=== PATIENT | female | born 1965 | race Caucasian/White ===

== ENCOUNTER 2021-03-03 11:18 | Emergency (ER) | payer MEDICAID, SELFPAY ==
--- NOTE | 2021-03-03 11:21 | W.ED.GENAD ---
Discharge Plan Disposition Patient Disposition: HOME Condition: Stable Discharge Details Clinical Impression: Right shoulder strain Primary Care Provider: Raymundo Dutton ED Provider: Kelly Duque Home Meds and New Rx's Prescriptions: New prednisone 20 mg tablet See Rx Instructions .ROUTE .COMPLEX Qty: 12 RF: 0 methocarbamol 500 mg tablet 500 mg PO Q6H PRN (Reason: muscle spasm) Qty: 14 RF: 0 Continued cyclobenzaprine 10 mg Tablet 10 mg PO TID PRNRF: 0 tramadol 50 mg Tablet 50 mg PO TID PRNRF: 0 meloxicam 7.5 mg Tablet 7.5 mg PO BID RF: 0 Remicade 100 mg Recon Soln 400 mg IV Q4W RF: 0 esomeprazole magnesium [Nexium] 20 mg Capsule,Delayed Release(Dr/Ec) 20 mg PO DAILY RF: 0 escitalopram oxalate [Lexapro] 20 mg Tablet 20 mg PO DAILY RF: 0 pregabalin [Lyrica] 75 mg Capsule 75 mg PO TID RF: 0 Discharge Instructions Instructions: Shoulder Sprain (ED) Additional Instructions: Alternate ice and heat to the affected area(s) several times daily for 20 minutes at a time. Continue all your regular medications as directed. Prescriptions for the steroid prednisone and muscle relaxer methocarbamol have been sent electronically to your pharmacy. Follow-up with your primary care doctor in 1 week for reevaluation and for consideration for physical therapy or referral to orthopedics for reevaluation and consideration for cortisone injection or additional work-up if symptoms do not improve or worsen. Return to the emergency department with any worsening or new concerning symptoms. Discharge Data Discharge Physician: Kelly Duque Medical Decision Making 55-year-old right hand dominant female with a history of lung cancer and ankylosing spondylitis presents with right shoulder and upper arm pain since grabbing onto a railing to prevent a fall 1 week ago. Denies any direct blunt injury to her shoulder or upper arm. Patient appears slightly uncomfortable but nontoxic. She has reproducible pain in her right shoulder and upper arm with palpation and range of motion. No deformity. Neurovascular intact. No evidence of trauma or cellulitis. Suspect this is most likely shoulder strain versus sprain. Also consider rotator cuff injury but no obvious deficits. Patient was offered an x-ray but declined. Advised to continue her tramadol, Remicade and meloxicam as needed. Will add muscle relaxers and steroids. Advised on the importance of alternating ice and heat. Advised to follow-up with her PCP for reevaluation and consideration for physical therapy, cortisone injection or MRI of symptoms do not improve or worsen. Medical Records Medical records reviewed: Yes I reviewed the patient's medical records. HPI General Mode of arrival: ambulatory. Date/Time Provider Initiated Documentation: 03/03/21 11:21. Limitations to Documentation: no limitations. Information obtained by: patient. HPI Narrative: Patient is a 55-year-old female with a history of lung cancer and ankylosing spondylitis who presents with right shoulder and upper arm pain after a fall 1 week ago in which she slipped on 2 steps and grabbed a railing to prevent her fall and has had right shoulder and upper arm pain since then. She states she hit her elbow but did not directly hit her shoulder or upper arm. She states she is right-handed and her pain is worse with movement of her right upper extremity. She states she takes tramadol twice daily as needed for her joint pain associated with her ankylosing spondylitis and states it has been helping with her pain in her shoulder. She did not take tramadol yet this morning. She states she is on Remicade and cyclobenzaprine. She denies any head injury, chest pain, difficulty breathing, neck pain, back pain, abdominal pain or other extremity injury or pain. Related Data Home Medications Medication Instructions Recorded Confirmed Remicade 400 mg IV Q4W 03/03/21 03/03/21 cyclobenzaprine 10 mg PO TID PRN 03/03/21 03/03/21 escitalopram oxalate [Lexapro] 20 mg PO DAILY 03/03/21 03/03/21 esomeprazole magnesium [Nexium] 20 mg PO DAILY 03/03/21 03/03/21 meloxicam 7.5 mg PO BID 03/03/21 03/03/21 methocarbamol 500 mg PO Q6H PRN #14 tab 03/03/21 prednisone See Rx Instructions .ROUTE 03/03/21 .COMPLEX #12 tab pregabalin [Lyrica] 75 mg PO TID 03/03/21 03/03/21 tramadol 50 mg PO TID PRN 03/03/21 03/03/21 Previous Rx's Medication Instructions Recorded methocarbamol 500 mg PO Q6H PRN #14 tab 03/03/21 prednisone See Rx Instructions .ROUTE 03/03/21 .COMPLEX #12 tab Allergies Allergy/AdvReac Type Severity Reaction Status Date / Time adalimumab [From Humira] AdvReac Other (See Unverified 03/03/21 11:31 Comment) aspirin AdvReac Nausea Unverified 03/03/21 11:31 secukinumab [From Cosentyx] AdvReac Other (See Unverified 03/03/21 11:31 Comment) Review of Systems All systems reviewed & are unremarkable except as noted in HPI and below Constitutional Constitutional: Reports as per HPI, Denies chills and Denies fever(s) Eyes Eyes: Denies blurry vision ENT Ears, Nose, Mouth, and Throat: Denies dizziness, Denies sore throat and Denies throat swelling Cardiovascular Cardiovascular: Denies chest pain and Denies dyspnea Respiratory Respiratory: Denies cough and Denies dyspnea Gastrointestinal Gastrointestinal: Denies abdominal pain, Denies diarrhea and Denies vomiting Genitourinary Genitourinary: Denies hematuria and Denies dysuria Musculoskeletal Musculoskeletal: Denies back pain and Denies numbness Comments: R shoulder and upper arm pain Integumentary/Breasts Skin/Breast: Denies lesions and Denies rash Neurologic Neurologic: Denies dizziness, Denies localized weakness and Denies numbness Allergic/Immunologic Allergic/Immunologic: Denies throat swelling [facility] Medical History (Updated 03/03/21 @ 12:44 by Kelly Duque DO) Ankylosing spondylitis Lung cancer Surgical History (Updated 03/03/21 @ 12:15 by Kelly Duque DO) History of hysterectomy Social History Smoking/Tobacco Use Status: Current every day Tobacco Type: cigarettes Smoking risk assessment performed?: Yes Alcohol Intake: current Alcohol Intake frequency: holidays/special occasions only Drug use: Never Substance use type: does not use Do you feel safe at home: Yes Do you feel safe in your relationship?: Yes Exam Const General: cooperative and no acute distress HENMT Head: normal to inspection Face and sinus: normal facial exam Eyes General: appearance normal, both eyes and all related structures EOM: EOM intact bilaterally Neck Neck: normal visual inspection and No submandibular swelling Lymphatic: no lymphadenopathy noted Chest Chest: normal inspection of the chest and no tenderness Resp Effort & Inspection: normal respiratory effort and able to speak in complete sentences Auscultation: clear to auscultation bilaterally Cardio Rate: regular rate Skin General skin exam: no rashes or lesions noted Neuro General: patient alert, patient awake and patient oriented x3 Cognition: normal cognition Speech: speech normal Motor: muscle tone normal throughout Sensory Exam: no sensory deficits noted Extrem General: normal to inspection, capillary refill normal, no calf tenderness bilaterally and no edema Shoulder/upper arm images: 1. Tenderness to palpation to right anterior, lateral shoulder and right upper arm. Pain reproducible in this location with flexion, abduction and external rotation against resistance. Other: R radial and ulnar pulses intact. No tenderness to palpation to right elbow, forearm, hand and wrist. Psych Appearance: grossly normal Mental Status: mental status grossly normal Speech and Movement: speech and movement normal Affect: normal affect
[2021-03-03 11:25] VITALS: BP 157/96; PULSE 91; RESP 18; TEMP 36.2; O2SAT 98
[2021-03-03] MEDS: predniSONE 20 MG TAB 60 MG PO (12:06)
[2021-03-03] MEDS: diazePAM 5 MG TAB PO (12:06)
== END 2021-03-03 13:14 | disposition home or self-care (01) ==
PROVIDERS: Emergency Provider Physician Assistant; PCP Family Medicine
DX: S46.811A Strain of other muscles, fascia and tendons at shoulder and upper arm level, right arm, initial encounter (principal); X50.1XXA Overexertion from prolonged static or awkward postures, initial encounter; W01.0XXA Fall on same level from slipping, tripping and stumbling without subsequent striking against object, initial encounter
CPT/HCPCS: 99283; J7512

== ENCOUNTER 2022-05-21 14:08 | Emergency (ER) | payer MEDICAID, SELFPAY ==
[2022-05-21 14:13] VITALS: BP 128/71; PULSE 119; RESP 20; TEMP 36.6; O2SAT 98
--- NOTE | 2022-05-21 14:15 | DI.RAD_ITS ---
Exam(s) XR CHEST 2V PA LATERAL EXAM: XR CHEST 2V PA LATERAL CLINICAL HISTORY: Cough, Hx lung Ca, R/O Pneumonia TECHNIQUE: 2D digital imaging was performed of the chest. Two images were obtained. PA and lateral views were obtained. COMPARISON: No exams were available for comparison FINDINGS: MEDIASTINUM: Normal. HEART: Normal. PULMONARY VASCULATURE: Normal. LUNGS: There is opacification of the right middle lobe. This may represent atelectasis or pneumonia. There irregular margins and increased density in the right hilum. The possibility of a central mas s should be considered. This in conjunction with the findings in the right middle lobe suggest an ob structing central lesion. The lungs are otherwise clear. PLEURAL SPACE: No pleural effusion or pneumothorax. BONE:Within normal limits for the patient's age. OTHER FINDINGS:The tip of the indwelling catheter is in good position near the junction of the superi or vena cava and right atrium. There is a hiatal hernia present. IMPRESSION: 1. Irregular soft tissue suggested in the right hilum. Volume loss and opacity in the right middle l obe. A central right hilar mass is suspected. Correlation with outside films or CT scan is recommen ded. 2. While the right middle lobe opacity may reflect simple atelectasis, the possibility of underlying right middle lobe pneumonia cannot be excluded. DATA REPOSITORY: RADIATION DOSE DELIVERED:
--- NOTE | 2022-05-21 14:27 | ED.GENADUL_ITS ---
Discharge Plan Disposition Patient Disposition: Home Condition: Stable Discharge Details Clinical Impression: URI (upper respiratory infection) Primary Care Provider: Miller Ortiz ED Provider: Shakira Mcgill Home Meds and New Rx's Prescriptions: New doxycycline hyclate 100 mg tablet 100 mg PO BID 10 Days Qty: 20 0RF Rx Instructions: Take 1 tablet twice daily x10 days benzonatate 100 mg capsule 100 mg PO BID-TID PRN (Reason: cough) 7 Days Qty: 14 0RF Rx Instructions: Take 1 capsule 2-3 times a day as needed for cough Continued cyclobenzaprine 10 mg Tablet 10 mg PO TID PRN tramadol 50 mg Tablet 50 mg PO TID PRN meloxicam 7.5 mg Tablet 7.5 mg PO BID Remicade 100 mg Recon Soln 400 mg IV Q4W esomeprazole magnesium [Nexium] 20 mg Capsule,Delayed Release(Dr/Ec) 20 mg PO DAILY escitalopram oxalate [Lexapro] 20 mg Tablet 20 mg PO DAILY pregabalin [Lyrica] 75 mg Capsule 75 mg PO TID prednisone 20 mg tablet See Rx Instructions .ROUTE .COMPLEX Qty: 12 0RF Rx Instructions: Take 3 tabs daily for 2 days, then 2 tabs daily for 2 days, then 1 tab daily for 2 days methocarbamol 500 mg tablet 500 mg PO Q6H PRN (Reason: muscle spasm) Qty: 14 0RF Discharge Instructions Instructions: Upper Respiratory Infection (ED) Additional Instructions: Continue using the albuterol inhaler 1 to 2 puffs every 4-6 hours as needed. The x-ray today shows a central right hilar mass suspected however we do not have any old images to compare this to and they do recommend repeat x-rays or CT scan. Please discuss this with your primary care provider. Please take the antibiotics and cough medicine as prescribed. You were given the first dose of doxycycline here in the department. Follow up with primary care provider in 3-5 days. Return to ED sooner if any worsening or concerns. Increase oral fluids. Please take Tylenol or Ibuprofen with food every 4-6 hours as needed for pain and swelling. Referrals: Miller Ortiz [Primary Care Provider] - 3 days Medical Decision Making See x-ray results below questionable right hilar mass suspected no old images to compare. I will discuss this with the patient and encouraged her to follow-up with PCP. However due to patient's symptoms we will go ahead and place patient on doxycycline for possible pneumonia. This text was generated using [employer] system, please disregard any oddities of phrase or misspellings. Imaging Data Radiologic Study: Imaging: X-Ray Radiologist's impression: CLINICAL HISTORY: Cough, Hx lung Ca, R/O Pneumonia TECHNIQUE: 2D digital imaging was performed of the chest. Two images were obtained. PA and lateral views were obtained. COMPARISON: No exams were available for comparison FINDINGS: MEDIASTINUM: Normal. HEART: Normal. PULMONARY VASCULATURE: Normal. LUNGS: There is opacification of the right middle lobe. This may represent atelectasis or pneumonia. There irregular margins and increased density in the right hilum. The possibility of a central mass should be considered. This in conjunction with the findings in the right middle lobe suggest an obstructing central lesion. The lungs are otherwise clear. PLEURAL SPACE: No pleural effusion or pneumothorax. BONE:Within normal limits for the patient's age. OTHER FINDINGS:The tip of the indwelling catheter is in good position near the junction of the superior vena cava and right atrium. There is a hiatal hernia present. IMPRESSION: 1. Irregular soft tissue suggested in the right hilum. Volume loss and opacity in the right middle lobe. A central right hilar mass is suspected. Correlation with outside films or CT scan is recommended. 2. While the right middle lobe opacity may reflect simple atelectasis, the possibility of underlying right middle lobe pneumonia cannot be excluded. HPI General Mode of arrival: ambulatory . Date/Time Provider Initiated Documentation: 05/21/22 14:12 . Limitations to Documentation: no limitations . Information obtained by: patient, family, RN notes reviewed and old records reviewed . HPI Narrative: 57-year-old female presents to the ER with chief complaint of productive cough, she reports that she has had flu in April. She reports productive cough with green-yellow sputum initially had fever and chills but none recently. Her reports that she has been clammy and she does have some nausea. She does have a history of lung cancer which is in remission and ankylosing spondylitis which she reports that she has been on steroids for the last month. No significant other associated symptoms or complaints denies any chest pain abdominal pain. She has been using an albuterol inhaler with little to no relief at home. Upon initial presentation and exam she does have rhonchi bilaterally. Related Data Home Medications Medication Instructions Recorded Confirmed cyclobenzaprine 10 mg tablet 10 mg PO TID PRN 03/03/21 03/03/21 escitalopram oxalate 20 mg tablet 20 mg PO DAILY 03/03/21 03/03/21 (Lexapro) esomeprazole magnesium 20 mg 20 mg PO DAILY 03/03/21 03/03/21 capsule,delayed release (Nexium) infliximab 100 mg intravenous 400 mg IV Q4W 03/03/21 03/03/21 solution (Remicade) meloxicam 7.5 mg tablet 7.5 mg PO BID 03/03/21 03/03/21 methocarbamol 500 mg tablet 500 mg PO Q6H PRN muscle spasm #14 03/03/21 tabs prednisone 20 mg tablet See Rx Instructions .Route 03/03/21 .COMPLEX #12 tabs pregabalin 75 mg capsule (Lyrica) 75 mg PO TID 03/03/21 03/03/21 tramadol 50 mg tablet 50 mg PO TID PRN 03/03/21 03/03/21 benzonatate 100 mg capsule 100 mg PO BID-TID PRN cough 7 days 05/21/22 #14 caps doxycycline hyclate 100 mg tablet 100 mg PO BID pneumonia 10 days 05/21/22 #20 tabs Previous Rx's Medication Instructions Recorded methocarbamol 500 mg tablet 500 mg PO Q6H PRN muscle spasm #14 03/03/21 tabs prednisone 20 mg tablet See Rx Instructions .Route 03/03/21 .COMPLEX #12 tabs benzonatate 100 mg capsule 100 mg PO BID-TID PRN cough 7 days 05/21/22 #14 caps doxycycline hyclate 100 mg tablet 100 mg PO BID pneumonia 10 days 05/21/22 #20 tabs Allergies Allergy/AdvReac Type Severity Reaction Status Date / Time adalimumab [From Humira] AdvReac Other (See Unverified 03/03/21 11:31 Comment) aspirin AdvReac Nausea Unverified 03/03/21 11:31 secukinumab [From Cosentyx] AdvReac Other (See Unverified 03/03/21 11:31 Comment) General Stated Complaint: RespSymp ANIL: 3 Review of Systems All systems reviewed & are unremarkable except as noted in HPI and below Constitutional Constitutional: Reports as per HPI, Reports fatigue, Denies fever(s) and Denies headache(s) ENT Ears, Nose, Mouth, and Throat: Denies headache(s) Cardiovascular Cardiovascular: Denies chest pain, Denies chest pain at rest and Denies rapid heart rate Respiratory Respiratory: Reports as per HPI, Reports change in phlegm color, Reports cough and Reports excessive phlegm production Neurologic Neurologic: Denies headache(s) Endocrine Endocrine: Reports fatigue PFSH All Active Problems (Updated 05/21/22 @ 15:45 by Shakira Mcgill NP) Right shoulder strain (Acute) URI (upper respiratory infection) (Acute) Medical History Ankylosing spondylitis Lung cancer Surgical History History of hysterectomy Social History Smoking/Tobacco Use Status: Current every day Tobacco Type: cigarettes Smoking risk assessment performed?: Yes Alcohol Intake: current Alcohol Intake frequency: holidays/special occasions only Drug use: Never Substance use type: does not use Do you feel safe at home: Yes Do you feel safe in your relationship?: Yes Exam Narrative Exam Narrative: Constitutional: Alert and oriented x3. Appears stated age. Normal body habitus. Head: Normocephalic, no trauma. Eyes: Pupils PERRL, Red reflex noted, EOM's intact. Eyelids symmetrical without lesions, discharge, or swelling. ENT: Bilateral TM's WNL, External ear normal to inspection, no mastoid TTP, swelling, or erythema, Nasal turbinates WNL, no nasal discharge. Normal dentition, Posterior pharynx WNL, no exudate. Chest: RRR, Normal S1, S2, distal pulses intact. Resp: Lungs return expiratory rhonchi bilaterally. Abdomen: Soft, non-distended, Normoactive bowel sounds all 4 quads. Musculoskeletal: Normal gait, 5/5 strength to all four extremities. Skin: No suspicious rashes or lesions. Capillary refill less than 2 sec. Neurologic: Cranial nerves II-XII intact. Alert and oriented x 3. Motor: No deficits noted. Hematologic/Lymphatic: No ecchymosis, no lymphadenopathy. Course Vital Signs Vital signs: Vital Signs Temperature 36.6 C 05/21/22 14:13 Pulse 119 H 05/21/22 14:13 Respiratory Rate 20 05/21/22 14:13 Blood Pressure 128/71 05/21/22 14:13 Pulse Oximetry 98 05/21/22 14:13 Temperature 36.6 C 05/21/22 14:13 Temperature Source Temporal Artery Scan 05/21/22 14:13 Pulse 119 H 05/21/22 14:13 Respiratory Rate 20 05/21/22 14:13 Blood Pressure 128/71 05/21/22 14:13 Blood Pressure Position Sitting 05/21/22 14:13 Pulse Oximetry 98 05/21/22 14:13 Oxygen Delivery Method Room Air 05/21/22 14:13 Oxygen Flow Rate 0 05/21/22 14:13 Pain Level 8 05/21/22 14:13
[2022-05-21] MEDS: Doxycycline Hyclate 100 MG CAP PO (16:10)
== END 2022-05-21 16:15 | disposition home or self-care (01) ==
PROVIDERS: Emergency Provider Registered Nurse Emergency; PCP Nurse Practitioner Adult Health
DX: J06.9 Acute upper respiratory infection, unspecified (principal); Z85.118 Personal history of other malignant neoplasm of bronchus and lung
CPT/HCPCS: 99283; 71046; 99284

== ENCOUNTER 2022-07-05 01:08 | Outpatient (CLI) | payer MEDICAID, SELFPAY ==
[2022-07-05] MEDS: Barium Sulfate 2% W/V-Berry Smoothie 450 ML BTL PO ×2 (10:29→10:30)
--- NOTE | 2022-07-05 13:00 | DI.CT_ITS ---
Exam(s) CT CHEST/ABD/PEL W EXAM: CT CHEST/ABD/PEL W CLINICAL HISTORY: [place] CA RT LUNG,C34.91. TECHNIQUE: Imaging Protocol: Axial computed tomography images with coronal and sagittal reformatted images were created and reviewed CONTRAST MATERIAL: Intravenous: Omnipaque 350 Contrast volume:100 ml Oral: yes / COMPARISON: CT CT CHEST W CONTRAST from 05/31/[address] CHEST W CONTRAST from 08/27/2021 FINDINGS: CHEST: Tracheobronchial tree: Patent where visualized. Pulmonary parenchyma: Stable linear area of scarring in the right upper lobe to the right superior hi lum. Tiny stable nodules at the right lung apex. Stable nodule right middle lobe. Stable nodule la teral inferior left upper lobe. No new pulmonary nodules are seen. Pleura: No effusion or pneumothorax. Lymph nodes: Within normal limits. Aorta: Thoracic portion non-dilated. Heart: Normal size. Minimal coronary artery calcifications. Bones: Bilateral old rib fractures. No lytic or blastic lesions.No compression fractures. Large hiatal hernia. Oral contrast in the esophagus could indicate reflux. ABDOMEN: Liver: Normal density. Stable full appearance of nodule in the posterior right lobe of the left femur with peripheral puddling which may represent a hemangioma. Additional tiny enhancing density is see n at the periphery, also unchanged. Gallbladder and biliary tract: No radiodense calculus or dilation. Pancreas: Normal density, no abnormal calcifications or inflammatory process. Spleen: Normal. Kidneys: Normal size, contour and axis. No radiodense stones or obstructive uropathy. No suspicious m asses seen. Adrenal glands: No masses seen. Aorta: Abdominal portion non-dilated. Lymph nodes: Within normal limits. Soft tissues: Unremarkable. PELVIS: Bladder: Symmetric distention, no gross wall thickening. Bowel: No obstruction or bowel wall thickening. Mild sigmoid diverticulosis. Peritoneal cavity: No ascites, collection or mesenteric inflammatory response. Bones: Unremarkable for age.. Reproductive organs: Status post hysterectomy. IMPRESSION: Stable appearance of the chest right upper lobe scarring. Stable bilateral pulmonary nodules. No ne w findings. No evidence of metastatic disease in the abdomen or pelvis. RADIATION DOSE DELIVERED: 1,918.62mGy.cm Total DLP DATA REPOSITORY: All CT scans at this facility are submitted to the National Radiology Data Registry (NRDR) Dose Index Registry (DIR) with the [employer] (A[employer]). RADIATION OPTIMIZATION: All CT scans at this facility use at least one of these dose optimization te chniques: automated exposure control; mA and/or kV adjustment per patient size (includes targeted exa ms where dose is matched to clinical indication); or iterative reconstruction.
[2022-07-05] MEDS: Omnipaque 350 MG/ML 500 ML BTL-Imaging package IJ (13:01)
[2022-07-05] MEDS: Normal Saline - Diluent 50 ML VIAL IJ (13:05)
== END 2022-07-05 01:28 ==
LOC: DI 01:08
PROVIDERS: PCP Nurse Practitioner Adult Health; Visit Provider Nurse Practitioner
DX: C34.91 Malignant neoplasm of unspecified part of right bronchus or lung (principal)
CPT/HCPCS: 74177; 71260

== ENCOUNTER 2022-07-05 01:22 | Outpatient (RCR) | payer MEDICAID, SELFPAY ==
[2022-06-12] VITALS (7 sets, daily range): BP systolic 113–150; BP diastolic 84–97; PULSE 90–99; RESP 17–18; TEMP 36.5–36.7; O2SAT 97–99
[2022-06-12] MEDS: Normal Saline Flush 10 ML SYR IVP (11:00)
[2022-06-12 11:14] LABS: HCT 38.4 % (36.0-46.0); HGB 12.7 g/dL (11.2-15.7); MCH 31.2 pg (27.0-33.0); MCHC 33.1 % (32.0-36.0); MCV 94 fL (80-95); Platelet Count 272 10^3/uL (130-400); RBC 4.07 10^6/uL (3.93-5.22); RDW 13.2 % (11.7-14.6); RDW-SD 45.4 fL; WBC 7.43 10^3/uL (4.4-10.8)
[2022-06-12] MEDS: Heparin 500 UNITS/5 ML SYRINGE IV (11:26)
[2022-06-12 11:32] LABS: ALT 14 U/L (14-59); AST 14 U/L (15-37); Albumin 3.6 g/dL (3.4-5.0); Alkaline Phosphatase 111 U/L (46-116); Anion Gap 10.3 mmol/L (3-11); BUN 12 mg/dL (7-18); Bilirubin, Total 0.3 mg/dL (0.2-1.0); CO2 23.7 mmol/L (21.0-32.0); CREATININE 0.9 mg/dL (0.55-1.02); Chloride 105 mmol/L (98-107); Glucose 113 mg/dL (74-106); Potassium 4.1 mmol/L (3.5-5.1); Sodium 139 mmol/L (136-145); Total Protein 7.7 g/dL (6.4-8.2)
[2022-06-28] VITALS (8 sets, daily range): BP systolic 117–133; BP diastolic 84–97; PULSE 87–101; RESP 17–20; TEMP 36.4–36.6; O2SAT 95–98
[2022-06-28] MEDS: Heparin 500 UNITS/5 ML SYRINGE IV (11:48)
[2022-06-28] MEDS: Normal Saline Flush 10 ML SYR IVP (11:48)
[2022-07-05] MEDS: Heparin 500 UNITS/5 ML SYRINGE IV (10:26)
[2022-07-05] MEDS: Normal Saline Flush 10 ML SYR IVP (10:27)
== END 2022-07-09 23:59 | disposition home or self-care (01) ==
LOC: INF 01:22
PROVIDERS: PCP Nurse Practitioner Adult Health; Referring Provider Internal Medicine Rheumatology; Visit Provider Nurse Practitioner Family
DX: M45.9 Ankylosing spondylitis of unspecified sites in spine (principal); Z45.2 Encounter for adjustment and management of vascular access device
CPT/HCPCS: 36591; 80053; 85027; 96365; 96366; 96413; 96415; 96523

== ENCOUNTER 2022-08-14 02:45 | Outpatient (RCR) | payer MEDICAID, SELFPAY ==
[2022-08-14 11:30] VITALS: BP 131/87; PULSE 90; RESP 16; TEMP 36.9; O2SAT 97
[2022-08-14 11:31] LABS: HGB 13.3 g/dL (11.2-15.7); MCH 31.7 pg (27.0-33.0); MCHC 34.1 % (32.0-36.0); MCV 93 fL (80-95); MPV 9.7 fL (8.0-11.0); Platelet Count 312 10^3/uL (130-400); RBC 4.19 10^6/uL (3.93-5.22); RDW 12.2 % (11.7-14.6); RDW-SD 41.4 fL; WBC 5.92 10^3/uL (4.4-10.8)
[2022-08-14 11:47] LABS: ALT 25 U/L (14-59); AST 16 U/L (15-37); Albumin 3.9 g/dL (3.4-5.0); Alkaline Phosphatase 97 U/L (46-116); Anion Gap 7.8 mmol/L (3-11); BUN 11 mg/dL (7-18); Bilirubin, Total 0.2 mg/dL (0.2-1.0); CO2 26.2 mmol/L (21.0-32.0); Calcium 8.9 mg/dL (8.5-10.1); Chloride 102 mmol/L (98-107); Estimated GFR 66.53 (mL/min/1.73m2); Glucose 98 mg/dL (74-106); Potassium 4.5 mmol/L (3.5-5.1); Sodium 136 mmol/L (136-145); Total Protein 7.7 g/dL (6.4-8.2)
[2022-08-14] MEDS: Normal Saline Flush 10 ML SYR IVP (11:52)
[2022-08-14] MEDS: Heparin 500 UNITS/5 ML SYRINGE IVP (11:54)
[2022-08-14 12:05] VITALS: BP 109/75; PULSE 86; RESP 16; TEMP 37; O2SAT 97
[2022-08-14 12:20] VITALS: BP 124/76; PULSE 86; RESP 16; TEMP 36.9; O2SAT 97
[2022-08-14 12:40] VITALS: BP 128/84; PULSE 81; RESP 16; TEMP 36.8; O2SAT 97
[2022-08-14 12:55] VITALS: BP 122/68; PULSE 89; RESP 17; TEMP 36.9; O2SAT 97
[2022-08-14 13:35] VITALS: BP 127/85; PULSE 85; RESP 16; TEMP 36.9; O2SAT 97
== END 2022-09-08 23:59 | disposition home or self-care (01) ==
LOC: INF 02:45
PROVIDERS: PCP Nurse Practitioner Adult Health; Visit Provider Nurse Practitioner Family
DX: M45.9 Ankylosing spondylitis of unspecified sites in spine (principal)
CPT/HCPCS: 36591; 80053; 85027; 96365; 96366; 96413; 96415

== ENCOUNTER 2022-10-09 03:21 | Outpatient (RCR) | payer MEDICAID, SELFPAY ==
[2022-09-09 00:21] VITALS: BP 127/85; PULSE 85; RESP 16; TEMP 36.9
[2022-09-12 11:10] VITALS: BP 125/85; PULSE 86; RESP 17; TEMP 36.7; O2SAT 97
[2022-09-12] MEDS: Heparin 500 UNITS/5 ML SYRINGE IV (11:48)
[2022-09-12] MEDS: Normal Saline Flush 10 ML SYR IVP (11:48)
[2022-09-12 12:07] VITALS: BP 120/78; PULSE 86; RESP 16; TEMP 36.7; O2SAT 96
[2022-09-12 12:24] VITALS: BP 128/84; PULSE 86; RESP 16; TEMP 36.7; O2SAT 98
[2022-09-12 12:40] VITALS: BP 134/88; PULSE 89; RESP 17; TEMP 36.8; O2SAT 96
[2022-09-12 12:50] VITALS: BP 129/87; PULSE 84; RESP 17; TEMP 36.7; O2SAT 96
[2022-09-12 13:25] VITALS: BP 118/83; PULSE 84; RESP 16; TEMP 36.6; O2SAT 96
[2022-10-09] VITALS (7 sets, daily range): BP systolic 115–148; BP diastolic 79–85; PULSE 72–89; RESP 16; TEMP 36.5–36.8; O2SAT 96–100
[2022-10-09 11:39] LABS: HGB 13.3 g/dL (11.2-15.7); MCH 31.8 pg (27.0-33.0); MCHC 34.1 % (32.0-36.0); MCV 93 fL (80-95); MPV 10.1 fL (8.0-11.0); Platelet Count 271 10^3/uL (130-400); RBC 4.18 10^6/uL (3.93-5.22); RDW 12.4 % (11.7-14.6); RDW-SD 42.7 fL; WBC 8.72 10^3/uL (4.4-10.8)
[2022-10-09] MEDS: Heparin 500 UNITS/5 ML SYRINGE IV (11:56)
[2022-10-09] MEDS: Normal Saline Flush 10 ML SYR IVP (11:56)
[2022-10-09 12:01] LABS: ALT 18 U/L (14-59); AST 13 U/L (15-37); Albumin 3.8 g/dL (3.4-5.0); Alkaline Phosphatase 92 U/L (46-116); Anion Gap 8.5 mmol/L (3-11); BUN 19 mg/dL (7-18); Bilirubin, Total 0.4 mg/dL (0.2-1.0); CO2 26.5 mmol/L (21.0-32.0); CREATININE 1.1 mg/dL (0.55-1.02); Calcium 8.7 mg/dL (8.5-10.1); Chloride 105 mmol/L (98-107); Estimated GFR 59.34 (mL/min/1.73m2); Glucose 102 mg/dL (74-106); Potassium 4.2 mmol/L (3.5-5.1); Sodium 140 mmol/L (136-145); Total Protein 7.5 g/dL (6.4-8.2)
== END 2022-10-09 23:59 | disposition home or self-care (01) ==
LOC: INF 03:21
PROVIDERS: PCP Nurse Practitioner Adult Health; Visit Provider Nurse Practitioner Family
DX: C34.91 Malignant neoplasm of unspecified part of right bronchus or lung (principal); M45.7 Ankylosing spondylitis of lumbosacral region
CPT/HCPCS: 36591; 80053; 85027; 96365; 96366; 96523

== ENCOUNTER 2022-12-09 01:54 | Outpatient (RCR) | payer MEDICAID, SELFPAY ==
[2022-11-09 00:15] VITALS: BP 148/84; PULSE 81; RESP 16; TEMP 36.7
[2022-11-15 11:16] VITALS: BP 131/90; PULSE 91; RESP 17; TEMP 37.2; O2SAT 96
[2022-11-15] MEDS: Normal Saline Flush 10 ML SYR IVP (11:38)
[2022-11-15 11:59] VITALS: BP 123/84; PULSE 94; RESP 17; TEMP 37.2; O2SAT 96
[2022-11-15 12:15] VITALS: BP 127/84; PULSE 84; RESP 17; TEMP 37.1; O2SAT 96
[2022-11-15 12:26] LABS: CREATININE 1.1 mg/dL (0.55-1.02); Estimated GFR 59.34 (mL/min/1.73m2)
[2022-11-15 12:30] VITALS: BP 139/91; PULSE 83; RESP 17; TEMP 36.4; O2SAT 96
[2022-11-15 12:45] VITALS: BP 137/88; PULSE 85; RESP 18; TEMP 37.1; O2SAT 98
[2022-11-15 13:15] VITALS: BP 157/94; PULSE 97; RESP 18; TEMP 37; O2SAT 94
== END 2022-12-09 23:59 | disposition home or self-care (01) ==
LOC: INF 01:54
PROVIDERS: PCP Nurse Practitioner Adult Health; Visit Provider Nurse Practitioner Family
DX: C34.91 Malignant neoplasm of unspecified part of right bronchus or lung (principal); Z45.2 Encounter for adjustment and management of vascular access device
CPT/HCPCS: 36591; 96365; 96366; 96413; 96415; 82565

== ENCOUNTER 2023-02-27 11:00 | Outpatient (RCR) | payer MEDICAID, SELFPAY ==
[2023-02-27 11:05] VITALS: BP 124/83; PULSE 86; RESP 17; TEMP 37.2; O2SAT 99
[2023-02-27] MEDS: Normal Saline Flush 10 ML SYR IVP (11:43)
[2023-02-27 12:00] VITALS: BP 116/81; PULSE 84; RESP 17; TEMP 37.1; O2SAT 97
[2023-02-27 12:15] VITALS: BP 124/86; PULSE 84; RESP 17; TEMP 36.9; O2SAT 98
[2023-02-27 12:30] VITALS: BP 125/84; PULSE 85; RESP 17; TEMP 36.8; O2SAT 96
[2023-02-27 12:45] VITALS: BP 123/84; PULSE 85; RESP 16; TEMP 36.7; O2SAT 98
[2023-02-27 13:15] VITALS: BP 127/86; PULSE 85; RESP 16; TEMP 36.9; O2SAT 99
[2023-02-27] MEDS: Heparin 500 UNITS/5 ML SYRINGE (14:05)
== END 2023-03-11 23:59 | disposition home or self-care (01) ==
LOC: INF 11:00
PROVIDERS: PCP Nurse Practitioner Adult Health; Visit Provider Family Medicine
DX: M45.9 Ankylosing spondylitis of unspecified sites in spine (principal)
CPT/HCPCS: 96365; 96366; 96413

== ENCOUNTER 2023-03-27 04:22 | Outpatient (RCR) | payer MEDICAID, SELFPAY ==
[2023-03-12 00:12] VITALS: BP 127/86; PULSE 85; RESP 16; TEMP 36.9
[2023-03-27] VITALS (7 sets, daily range): BP systolic 121–152; BP diastolic 84–95; PULSE 60–98; RESP 16–18; TEMP 36.3–37.3; O2SAT 95–100
[2023-03-27] MEDS: Normal Saline Flush 10 ML SYR IVP (10:59)
[2023-03-27] MEDS: Heparin 500 UNITS/5 ML SYRINGE IVP (13:19)
== END 2023-04-10 23:59 | disposition home or self-care (01) ==
LOC: INF 04:22
PROVIDERS: PCP Nurse Practitioner Adult Health; Visit Provider Family Medicine
DX: M45.7 Ankylosing spondylitis of lumbosacral region
CPT/HCPCS: 96365; 96366; 96413; 96415

== ENCOUNTER 2023-04-29 10:00 | Outpatient (RCR) | payer MEDICAID, SELFPAY ==
[2023-04-11 00:21] VITALS: BP 127/86; PULSE 85; RESP 16; TEMP 36.9
[2023-04-29] VITALS (7 sets, daily range): BP systolic 118–134; BP diastolic 82–87; PULSE 82–93; RESP 16–17; TEMP 36.7–37.2; O2SAT 96–100
[2023-04-29] MEDS: Normal Saline Flush 10 ML SYR IVP (10:45)
[2023-04-29] MEDS: Heparin 500 UNITS/5 ML SYRINGE IVP (10:46)
[2023-04-29 11:26] LABS: HCT 36.2 % (36.0-46.0); HGB 12.1 g/dL (11.2-15.7); MCH 31.9 pg (27.0-33.0); MCHC 33.4 % (32.0-36.0); MCV 96 fL (80-95); MPV 10.4 fL (8.0-11.0); Platelet Count 235 10^3/uL (130-400); RBC 3.79 10^6/uL (3.93-5.22); RDW 11.9 % (11.7-14.6); RDW-SD 41.2 fL; WBC 4.17 10^3/uL (4.4-10.8)
[2023-04-29 11:50] LABS: ALT 21 U/L (14-59); AST 13 U/L (15-37); Albumin 3.5 g/dL (3.4-5.0); Alkaline Phosphatase 79 U/L (46-116); Anion Gap 8.2 mmol/L (3-11); BUN 22 mg/dL (7-18); Bilirubin, Total 0.3 mg/dL (0.2-1.0); CO2 25.8 mmol/L (21.0-32.0); CREATININE 1.1 mg/dL (0.55-1.02); Calcium 8.8 mg/dL (8.5-10.1); Chloride 106 mmol/L (98-107); Estimated GFR 59.34 (mL/min/1.73m2); Glucose 92 mg/dL (74-106); Potassium 4.4 mmol/L (3.5-5.1); Sodium 140 mmol/L (136-145); Total Protein 7.2 g/dL (6.4-8.2)
== END 2023-05-11 23:59 | disposition home or self-care (01) ==
LOC: INF 10:00
PROVIDERS: PCP Nurse Practitioner Adult Health; Visit Provider Family Medicine
DX: M45.9 Ankylosing spondylitis of unspecified sites in spine (principal)
CPT/HCPCS: 36591; 80053; 85027; 96365; 96366; 96413; 96415

== ENCOUNTER 2023-05-27 03:35 | Outpatient (RCR) | payer MEDICAID, SELFPAY ==
[2023-05-12 00:08] VITALS: BP 127/86; PULSE 85; RESP 16; TEMP 36.9
[2023-05-27] VITALS (7 sets, daily range): BP systolic 144–162; BP diastolic 90–100; PULSE 83–93; RESP 16–17; TEMP 36.5–36.7; O2SAT 97–100
[2023-05-27] MEDS: Normal Saline Flush 10 ML SYR IVP (10:06)
[2023-05-27] MEDS: Heparin 500 UNITS/5 ML SYRINGE IVP (10:15)
== END 2023-06-11 23:59 | disposition home or self-care (01) ==
LOC: INF 03:35
PROVIDERS: PCP Nurse Practitioner Adult Health; Visit Provider Family Medicine
DX: C34.91 Malignant neoplasm of unspecified part of right bronchus or lung
CPT/HCPCS: 96365; 96366; J1642; Q5103

== ENCOUNTER 2025-02-08 03:11 | Outpatient (CLI) | payer MEDICAID, SELFPAY ==
[2025-02-08 11:16] LABS: Abs Immature Grans 0.03 10^3/uL (0.0-0.06); HCT 42.5 % (36.0-46.0); HGB 14.4 g/dL (11.2-15.7); Immature Grans % 0.4 %; MCH 32.3 pg (27.0-33.0); MCHC 33.9 % (32.0-36.0); MCV 95 fL (80-95); MPV 9.4 fL (8.0-11.0); Platelet Count 336 10^3/uL (130-400); RBC 4.46 10^6/uL (3.93-5.22); RDW 12.1 % (11.7-14.6); RDW-SD 42.5 fL; WBC 7.97 10^3/uL (4.4-10.8)
[2025-02-08 11:45] LABS: ALT 17 U/L (14-59); AST 12 U/L (15-37); Albumin 3.5 g/dL (3.4-5.0); Alkaline Phosphatase 113 U/L (46-116); Anion Gap 8.2 mmol/L (3-11); BUN 9 mg/dL (7-18); Bilirubin, Total 0.3 mg/dL (0.2-1.0); CO2 27.8 mmol/L (21.0-32.0); Calcium 9.0 mg/dL (8.5-10.1); Chloride 102 mmol/L (98-107); Estimated GFR 74.57 (mL/min/1.73m2); Glucose 91 mg/dL (74-106); Potassium 4.6 mmol/L (3.5-5.1); Sodium 138 mmol/L (136-145); Total Protein 7.6 g/dL (6.4-8.2)
== END 2025-02-08 03:12 | disposition home or self-care (01) ==
LOC: LBO 03:11
PROVIDERS: PCP Nurse Practitioner Adult Health
DX: C34.91 Malignant neoplasm of unspecified part of right bronchus or lung (principal); Z15.89 Genetic susceptibility to other disease; Z15.09 Genetic susceptibility to other malignant neoplasm; Z09 Encounter for follow-up examination after completed treatment for conditions other than malignant neoplasm
CPT/HCPCS: 36415; 80053; 85025

== ENCOUNTER 2025-04-20 00:53 | Outpatient (CLI) | payer MEDICAID, SELFPAY ==
[2025-04-20 10:27] LABS: Abs Immature Grans 0.01 10^3/uL (0.0-0.06); HCT 38.9 % (36.0-46.0); HGB 13.2 g/dL (11.2-15.7); Immature Grans % 0.2 %; MCH 32.4 pg (27.0-33.0); MCHC 33.9 % (32.0-36.0); MCV 96 fL (80-95); MPV 9.9 fL (8.0-11.0); Platelet Count 281 10^3/uL (130-400); RBC 4.07 10^6/uL (3.93-5.22); RDW 13.5 % (11.7-14.6); RDW-SD 47.7 fL; WBC 6.50 10^3/uL (4.4-10.8)
[2025-04-20 10:50] LABS: ALT 13 U/L (10-49); AST 16 U/L (<34); Albumin 4.4 g/dL (3.2-5.0); Alkaline Phosphatase 161 U/L (46-116); Anion Gap 6.6 mmol/L (3-11); BUN 15 mg/dL (9-23); Bilirubin, Total 0.4 mg/dL (0.2-1.2); CO2 27.4 mmol/L (20.0-31.0); Calcium 9.4 mg/dL (8.3-10.6); Chloride 105 mmol/L (98-107); Glucose 101 mg/dL (74-106); Potassium 5.2 mmol/L (3.5-5.1); Sodium 139 mmol/L (136-145); Total Protein 7.2 g/dL (5.7-8.2)
== END 2025-04-20 00:54 | disposition home or self-care (01) ==
PROVIDERS: PCP Nurse Practitioner Adult Health
DX: Z15.89 Genetic susceptibility to other disease (principal); Z15.09 Genetic susceptibility to other malignant neoplasm; Z09 Encounter for follow-up examination after completed treatment for conditions other than malignant neoplasm; C34.91 Malignant neoplasm of unspecified part of right bronchus or lung
CPT/HCPCS: 36415; 80053; 85025